=== PATIENT | male | born 1985 | race Caucasian/White ===

== ENCOUNTER 2018-09-05 22:48 | Emergency (ER) | payer OTHER ==
[~2018-09-05] VITALS: Ht 167.6 cm; Wt 72.7 kg
--- NOTE | 2018-09-05 23:32 | REPVR ---
EXAM: CT Head Without Contrast EXAM DATE/TIME: 09/05/2018 11:03 PM CLINICAL HISTORY: 33 years old, male; Injury or trauma; Fall; Initial encounter; Blunt trauma (contusions or hematomas); Consciousness not specified; Additional info: Fall, confusion TECHNIQUE: Imaging protocol: Axial computed tomography images of the head/brain without contrast. Radiation optimization: All CT scans at this facility use at least one of these dose optimization techniques: automated exposure control; mA and/or kV adjustment per patient size (includes targeted exams where dose is matched to clinical indication); or iterative reconstruction. COMPARISON: No relevant prior studies available. FINDINGS: Brain: Normal. No hemorrhage. No significant white matter disease. No edema. Ventricles: Normal. No ventriculomegaly. Bones/joints: Unremarkable. No acute fracture. Sinuses: Near opacification of the right maxillary sinus. Mastoid air cells: Visualized mastoid air cells are unremarkable. No mastoid effusion. Soft tissues: Unremarkable. IMPRESSION: 1. Right maxillary sinus disease. 2. Otherwise negative noncontrast head CT. Electronically signed by: Alejandro Lezama On 09/05/2018 23:31:25 PM
--- NOTE | 2018-09-05 23:34 | REPVR ---
EXAM: CT Cervical Spine Without Contrast EXAM DATE/TIME: 09/05/2018 11:03 PM CLINICAL HISTORY: 33 years old, male; Injury or trauma; Fall; Initial encounter; Blunt trauma; Additional info: Fall, confusion TECHNIQUE: Imaging protocol: Axial computed tomography images of the cervical spine without contrast. Coronal and sagittal reformatted images were created and reviewed. Radiation optimization: All CT scans at this facility use at least one of these dose optimization techniques: automated exposure control; mA and/or kV adjustment per patient size (includes targeted exams where dose is matched to clinical indication); or iterative reconstruction. COMPARISON: No relevant prior studies available. FINDINGS: Vertebrae: No acute fracture. Normal alignment. Discs/Spinal canal/Neural foramina: No spinal stenosis. No neural foraminal narrowing. Soft tissues: Unremarkable. Lungs: Lung apices are normal. Other findings: Right maxillary sinus mucosal thickening and near-complete opacification. IMPRESSION: 1. Right maxillary sinus disease. 2. Otherwise negative CT cervical spine. No fracture or subluxation is evident and no spinal or foraminal stenosis. Electronically signed by: Alejandro Lezama On 09/05/2018 23:34:09 PM
[2018-09-05 23:40] LABS: HEMATOCRIT 42.6 % (42.0-52.0); HEMOGLOBIN 14.7 g/dl (13.5-17.5); MEAN CORPUSCULAR HEMOGLOBIN 31.6 pg (27.0-33.0); MEAN CORPUSCULAR HGB CONC 34.5 g/dl (32.0-36.5); MEAN CORPUSCULAR VOLUME 91.6 fl (80.0-96.0); PLATELET COUNT, AUTOMATED 217 10^3/uL (150-450); RED BLOOD COUNT 4.65 10^6/uL (4.30-6.10); WHITE BLOOD COUNT 7.4 10^3/uL (4.0-10.0)
[2018-09-05] MEDS ORDERED: ONDANSETRON 4 MG ORAL DISINTEGRATING TAB (Q0162 PER 1MG) PO ONE (23:45)
[2018-09-05] MEDS ORDERED: IBUP1TAB7 PO (23:50)
[2018-09-06] VITALS: BP 142/80
[2018-09-06 00:09] LABS: BLOOD UREA NITROGEN 12 MG/DL (7-18); CALCIUM LEVEL 8.7 MG/DL (8.5-10.1); CARBON DIOXIDE LEVEL 27 MEQ/L (21-32); CHLORIDE LEVEL 108 MEQ/L (98-107); CREATININE FOR GFR 0.81 MG/DL (0.70-1.30); ETHYL ALCOHOL (ETHANOL) 0.285 % (0.000-0.010); GLOMERULAR FILTRATION RATE > 60.0 (>60); GLUCOSE, FASTING 103 MG/DL (70-100); POTASSIUM SERUM 3.9 MEQ/L (3.5-5.1); SODIUM LEVEL 144 MEQ/L (136-145)
[2018-09-06] MEDS ORDERED: IBUP80TA PO (10:29)
--- NOTE | 2018-09-07 05:43 | ECGEPIP ---
Stationary ECG Study [facility] - ED Test Date: 2018-09-05 Pat Name: MELITA GUSMAN Department: Room: - Gender: M [employer]er: jasbir : [id number] Requested By: BHUMIKA Jones Order Number: [id number] Reading MD: Filipe uBrton Measurements Intervals [place] Rate: 82 P: 71 MS: 163 QRS: 53 QRSD: 96 T: 28 QT: 341 QTc: 399 Interpretive Statements SINUS RHYTHM NSTTW ABNORMALITIES NO PRIORS FOR COMPARISON Electronically Signed On 09-07-2018 5:42:56 EDT by Filipe Burton
== END 2018-09-06 00:02 | disposition home or self-care (01) ==
LOC: M ED 22:48
DX: S06.0X0A Concussion without loss of consciousness, initial encounter (principal); S01.01XA Laceration without foreign body of scalp, initial encounter; F10.120 Alcohol abuse with intoxication, uncomplicated; W01.190A Fall on same level from slipping, tripping and stumbling with subsequent striking against furniture, initial encounter
CPT/HCPCS: 12001; 70450; 72125; 80048; 85027; 93005; 99284; G0480; Q0162

== ENCOUNTER 2018-09-06 09:07 | Emergency (ER) | payer OTHER ==
[~2018-09-06] VITALS: Ht 170.2 cm; Wt 72.7 kg
[~2018-09-06 09:07] MED LIST: IBUP1TAB7 PO
[2018-09-06] MEDS ORDERED: ACETAMINOPHEN 325 MG TAB PO ONE (10:00)
--- NOTE | 2018-09-06 10:11 | REP ---
Left knee series: Four views. History: Pain. Trauma. Findings: Four views of the left knee demonstrate normal bones, joints and soft tissues. A normal fabella is seen. No fracture or subluxation is seen. Impression: Negative left knee radiographs. No sunrise view is included. Electronically Signed by Demetrius Oneill MD 09/06/2018 09:48 A
[2018-09-06 10:26] VITALS: BP 132/76
[2018-09-06] MEDS ORDERED: IBUP80TA PO (10:29)
== END 2018-09-06 10:40 | disposition home or self-care (01) ==
LOC: M ED 09:07
DX: S90.512A Abrasion, left ankle, initial encounter (principal); M25.562 Pain in left knee; W01.10XA Fall on same level from slipping, tripping and stumbling with subsequent striking against unspecified object, initial encounter; Y92.89 Other specified places as the place of occurrence of the external cause; Y93.51 Activity, roller skating (inline) and skateboarding; Y99.9 Unspecified external cause status

== ENCOUNTER 2018-09-11 13:53 | Emergency (ER) | payer OTHER ==
[~2018-09-11] VITALS: Ht 170.2 cm; Wt 72.7 kg
[2018-09-11 13:53] VITALS: BP 134/87
[~2018-09-11 13:53] MED LIST changes: +IBUP80TA PO
== END 2018-09-11 15:26 | disposition home or self-care (01) ==
LOC: M ED 13:53
DX: Z48.02 Encounter for removal of sutures (principal)